=== PATIENT | female | born 2000 | race Hispanic/Latino ===

== ENCOUNTER → 2024-12-22 14:33 | Outpatient (CLI) | payer OTHER, SELFPAY ==
[2024-12-22 15:01] LABS: Appearance Urine UA CLEAR; Bilirubin Urine UA NEGATIVE (NEGATIVE); Color Urine UA YELLOW; Glucose Urine UA NEGATIVE (Negative); Ketones Urine UA 3+ (NEGATIVE); Leukocyte Esterase Urine UA TRACE (NEGATIVE); Nitrite Urine UA NEGATIVE (Negative); Occult Blood Urine UA NEGATIVE (Negative); Protein Urine UA TRACE (Negative); Specific Gravity Urine UA 1.015 (1.000-1.035); Urobilinogen Urine UA 0.2 E.U./dL (0.2); pH Urine UA 6.5 (4.5-8.0)
[2024-12-22 15:09] LABS: Bacteria Urine Many (>30); Mucus Urine 2+ (Negative); RBC Urine 0-1/HPF (0-5/HPF); Squamous Epithelial Cell Urine 5-10 /HPF (0-5/HPF); Urine Volume 10mL (spun); WBC Urine 1-5/HPF (0-5/HPF)
[2024-12-22 15:28] LABS: Add Manual Diff / Slide Review NO; Basophils Absolute Auto 0 /uL (0-100); Basophils Percent Auto 0.3 % (0-2); Eosinophils Absolute Auto 0 /uL (0-450); Eosinophils Percent Auto 0.2 % (2-4); Hemoglobin 13.1 g/dL (12.0-16.0); Lymphocytes Absolute Auto 2300 /uL (1100-4500); Lymphocytes Percent Auto 23.2 % (25-40); Mean Corpuscular HGB Conc 32.8 % (30-36); Mean Corpuscular Hemoglobin 25.3 PG (26-34); Mean Corpuscular Volume 77.3 fL (80-100); Monocytes Absolute Auto 700 /uL (0-900); Monocytes Percent Auto 7.2 % (3-14); Neutrophils Absolute Auto 7000 /uL (1500-7000); Neutrophils Percent Auto 69.1 % (50-75); Platelet Count 265 X10^3/uL (150-400); Red Blood Cell Count 5.17 X10^6/uL (4.0-5.2); Red Cell Distribution Width 14.4 % (11.6-14.8); White Blood Cell Count 10.1 X10^3/uL (4.5-11.0)
[2024-12-22 17:11] LABS: Hepatitis B Surface Antigen NEGATIVE s/c (NEGATIVE); Rubella Antibody IgG 9.7 IU/mL (>15)
[2024-12-22 17:26] LABS: HIV 1 & 2 Ab/Ag 4th Gen Combo NEGATIVE (NEGATIVE); Hep C Virus Ab w/Reflex Quant NEGATIVE s/c (NEGATIVE)
[2024-12-24 02:36] LABS: RPR Screen Non Reactive (Non Reactive)
[2024-12-24 04:09] LABS: Varicella IgG Antibody Non Reactive (Non Reactive)
== END ==
PROVIDERS: Referring Provider Family Medicine; Visit Provider Family Medicine
DX: Z34.80 Encounter for supervision of other normal pregnancy, unspecified trimester (principal)
CPT/HCPCS: 36415; 80055; 81003; 81015; 86787; 86803; 86850; 86900; 86901; 87086; 87389

== ENCOUNTER → 2024-12-30 12:54 | Outpatient (CLI) | payer OTHER, SELFPAY ==
[2024-12-30 14:03] LABS: Natera Collection Specimen Collected
== END ==
PROVIDERS: Referring Provider Family Medicine; Visit Provider Family Medicine
DX: Z34.81 Encounter for supervision of other normal pregnancy, first trimester (principal)
CPT/HCPCS: 36415

== ENCOUNTER → 2025-03-06 13:36 | Outpatient (CLI) | payer OTHER, SELFPAY ==
--- NOTE | 2025-03-06 13:38 | DI.US.S_ITS ---
PROCEDURE: US OB >= 14 WEEKS FETUS INDICATIONS: anatomy OUTSIDE/PRIOR DATING DATA: Last menstrual period (LMP): 10/05/2024. LMP-based estimated date of delivery (NITIN): 07/12/2025. First dating scan (date and location): 12/01/2024. Estimated date of delivery (NITIN) from first dating scan: 07/12/2025. The calculations are made using the ultrasound and working NITIN of 07/12/2025. TECHNIQUE: Real-time scanning was performed of the fetus, with image documentation and biometric measurements. Endovaginal scanning: Not performed COMPARISON: None. FINDINGS: General: A single living intrauterine gestation is present. Presentation: Breech. Placenta: Placental position is anterior , without previa. Amniotic fluid index: 13.0 cm, normal range is 5-24 cm. Single deepest vertical pocket is 4.3 cm. heart rate: 144 beats per minute. Maternal cervical canal: 4.5 cm long. Normal lower limit is 2.5 cm. biometrics: Biparietal diameter: 5.2 cm, 21 weeks 6 days Head circumference: 20.0 cm, 22 weeks 1 day Abdominal circumference: 18.1 cm, 23 weeks 0 days Femur length: 3.9 cm, 22 weeks 3 days Clinically estimated gestational age: 21 weeks 5 days Composite gestational age from present scan: 22 weeks 3 days Estimated weight and percentile: 520 g, 87th percentile Anatomic survey: Neuro: Ventricles are non-dilated at less than 10 mm. Cisterna magna is normal at 3-11 mm. Cerebellum is normal in size and morphology. Nuchal skin fold: Normal at less than 6 mm between 14-21 weeks gestational age. Face: Nose and lips, facial profile are normal. Spine: Not well seen secondary to lie. Heart: 4-chambered heart is present, with normal ventricular outflow tracts. Diaphragm: Diaphragm is intact. Stomach: Left-sided stomach is present. Kidneys: No hydronephrosis. Normal is less than 5 mm in 2nd trimester, less than 7 mm in 3rd trimester. Cord: 3-vessel cord has orthotopic insertion. Bladder: Normal in size. Extremities: All 4 extremities identified. IMPRESSION: 1. Living 2nd trimester intrauterine with no sonographic evidence of complications. Current ultrasound age is 5 days greater than clinical age. 2. spine not well evaluated secondary to position. Otherwise unremarkable 2nd trimester anatomy study. Comment: Recommend return for limited imaging to re-attempt evaluation of the spine. This would complete a 2nd trimester anatomy study. We strive to produce accurate, complete, and clear reports of imaging services. To assist us in improving patient care, this report was composed using standard report templates and voice recognition software. Therefore, it may contain abnormal punctuation, insertions and/or omissions. Occasional wrong-word or sound-alike substitutions may occur. Though we review the report and make efforts to correct it, we do recommend that the report be read carefully in proper context to recognize any text inaccuracies. Dictated by: Heath Boucher M.D. on 03/06/2025 at 22:56 Approved by: Heath Boucher M.D. on 03/06/2025 at 22:58
== END ==
PROVIDERS: Family Provider Family Medicine; Referring Provider Family Medicine; Visit Provider Family Medicine
DX: Z34.82 Encounter for supervision of other normal pregnancy, second trimester (principal); Z3A.22 22 weeks gestation of pregnancy
CPT/HCPCS: 76811

== ENCOUNTER → 2025-03-23 14:37 | Outpatient (CLI) | payer OTHER, SELFPAY ==
--- NOTE | 2025-03-23 14:38 | DI.US.S_ITS ---
PROCEDURE: US OB FOLLOW UP INDICATIONS: f/u anatomy OUTSIDE/PRIOR DATING DATA: Last menstrual period (LMP): Unnoticed. LMP-based estimated date of delivery (NITIN): 07/06/2025. First dating scan (date and location): 12/01/2024. Estimated date of delivery (NITIN) from first dating scan: 07/12/2025. The calculations are made using the ultrasound NITIN of 07/12/2025. TECHNIQUE: Real-time scanning was performed of the fetus, with image documentation and biometric measurements. COMPARISON: [facility], US, US OB >= 14 WEEKS FETUS, 03/06/2025, 13:49. FINDINGS: General: A single living intrauterine gestation is present. Presentation: Breech. Placenta: Placental position is anterior , without previa. Amniotic fluid index: 11 point cm, normal range is 5-24 cm. Single deepest vertical pocket is 4.1 cm. heart rate: 158 beats per minute. Maternal cervical canal: 3.6 cm long. Normal lower limit is 2.5 cm. biometrics: Clinically estimated gestational age: 24 weeks 1 day Other: Spine remains not well seen. IMPRESSION: Single live intrauterine with gestational age of 24 weeks 1 day. Spine remains not well seen. Interval follow-up is recommended. We strive to produce accurate, complete, and clear reports of imaging services. To assist us in improving patient care, this report was composed using standard report templates and voice recognition software. Therefore, it may contain abnormal punctuation, insertions and/or omissions. Occasional wrong-word or sound-alike substitutions may occur. Though we review the report and make efforts to correct it, we do recommend that the report be read carefully in proper context to recognize any text inaccuracies. Dictated by: Kristel Smith M.D. on 03/24/2025 at 13:16 Approved by: Kristel Smith M.D. on 03/24/2025 at 13:18
== END ==
PROVIDERS: Family Provider Family Medicine; Referring Provider Family Medicine; Visit Provider Family Medicine
DX: Z34.82 Encounter for supervision of other normal pregnancy, second trimester (principal); Z3A.24 24 weeks gestation of pregnancy
CPT/HCPCS: 76816

== ENCOUNTER → 2025-04-17 12:31 | Outpatient (CLI) | payer OTHER, SELFPAY ==
--- NOTE | 2025-04-17 12:33 | DI.US.S_ITS ---
PROCEDURE: US OB FOLLOW UP INDICATIONS: f/u anatomy OUTSIDE/PRIOR DATING DATA: Last menstrual period (LMP): Unknown. LMP-based estimated date of delivery (NITIN): 07/06/25. First dating scan (date and location): 12/01/24. Estimated date of delivery (NITIN) from first dating scan: 07/12/25. The calculations are made using the sonographic NITIN of 07/12/25. TECHNIQUE: Real-time scanning was performed of the fetus, with image documentation. Endovaginal scanning: No COMPARISON: [facility], , OB FOLLOW UP, 03/23/2025, 15:15. FINDINGS: A single living intrauterine gestation is present. Presentation: Cephalic. Placenta: Placental position is anterior, without previa. Amniotic fluid index: 17.3 cm, normal range is 5-24 cm. Single deepest vertical pocket is 4.8 cm. heart rate: 133 beats per minute. Maternal cervical canal: Closed and 3.0 cm long. Normal lower limit is 2.5 cm. Biparietal diameter 6.9 cm, 27 weeks five days Head circumference 26.3 cm, 28 weeks four days Abdominal circumference 23.9 cm, 28 weeks one day Femur length 5.5 cm, 28 weeks six days Composite gestational age: 28 weeks two days Expected gestational age: 27 weeks five days. Estimated weight 1224 g, 66th percentile spine and skin covering spine was normal on today's exam. IMPRESSION: Single live intrauterine with estimated weight at the 66th percentile. Composite gestational age in good agreement with the working gestational age. Closed cervix and normal amniotic fluid. Completion of anatomic survey visualization of a normal spine. Dictated by: Celia Landa M.D. on 04/17/2025 at 18:50 Approved by: Celia Landa M.D. on 04/17/2025 at 18:55
== END ==
LOC: US 12:32
PROVIDERS: Family Provider Family Medicine; Referring Provider Family Medicine; Visit Provider Family Medicine
DX: Z34.83 Encounter for supervision of other normal pregnancy, third trimester (principal); Z3A.28 28 weeks gestation of pregnancy
CPT/HCPCS: 76816

== ENCOUNTER 2025-04-21 17:57 | Emergency (ER) | payer OTHER, SELFPAY ==
[2025-04-21 18:02] VITALS: BP 122/71; PULSE 110; RESP 16; TEMP 36.9; O2SAT 98; BMI 28.9
--- NOTE | 2025-04-21 18:41 | ED.GENADULT ---
HPI - General Adult General Chief complaint: Eye Problems Stated complaint: lost hector rt eye, 28weeks Time Seen by Provider: 04/21/25 18:19 Source: patient Mode of arrival: Ambulatory History of Present Illness HPI narrative: 24-year-old woman who currently is 28 weeks comes in with acute visual changes. She states she has a history of migraine with visual aura as well as ocular migraine. Today she describes reading and then developed blurry vision in her right eye only. Certainly after that she describes in irritation flashing visual are very consistent with ocular migraine. Symptoms lasted approximately 20 minutes, no other complaints, no headache she notes that she has been a bit more stressed lately she is feeling the baby moving an active. No recent fevers, cough, chills, chest pain, palpitations no recent trauma Related Data Home Medications ?Medication ?Instructions ?Recorded ?Confirmed [id number]-LB 400 mcg-om3 35 mg-dha 25 tab PO 11/27/24 03/23/25 mg-epa 5 mg-fish oil chewable tablet ferrous sulfate 325 mg (65 mg 325 mg PO DAILY 11/27/24 03/23/25 iron) tablet (Feosol) Previous Rx's ?Medication ?Instructions ?Recorded ondansetron 4 mg disintegrating 4 mg PO Q6H PRN nausea and 12/01/24 tablet vomiting #30 tabs Allergies Allergy/AdvReac Type Severity Reaction Status Date / Time mushroom Allergy Intermediate Hives Verified 04/21/25 18:07 Penicillins Allergy Mild Rash Verified 04/21/25 18:07 Review of Systems Review of Systems Narrative: Pertinent positive and negative findings as per HPI Patient History Surgical History History of dilation and curettage History of tonsillectomy History of tooth extraction H/O tympanostomy Family History Mother H/O thyroidectomy Father Gastric ulcer GERD (gastroesophageal reflux disease) Grandmother Diabetes mellitus Kidney disease Hypertension Grandfather Pancreatic cancer Brother Hyperbilirubinemia Social History marital status: number of children: 1 household members: spouse and children lives independently: Yes caregiver/support person: Yes housing: house pets and animals: Yes (dogs) education level: college (almost finished w/ bachelor's) occupational status: student current occupational exposures/hazards: No special frances needs: No travel history: recent (domestic only) seatbelt use: always water heater temp set < 120 deg: Yes working smoke detector in home: Yes fire extinguisher in home: No carbon monox detector in home: Yes firearms in home: Yes firearms unloaded and locked: Yes do you feel safe at home: Yes Smoking Status: Never smoker second hand exposure: No alcohol intake: former (rarely when not ) substance use type: does not use during the past year weight has: other (back to non- weight) well-balanced diet: daily or most days daily servings fruits/ve-4 caffeine: No Type(s) of exercise: resistance training, running and yoga (pilates) Smoking Status: Never smoker Exam Initial Vital Signs Initial Vital Signs: Vital Signs Temperature 98.4 F 04/21/25 18:02 Pulse Rate 110 H 04/21/25 18:02 Respiratory Rate 16 04/21/25 18:02 Blood Pressure 122/71 04/21/25 18:02 Pulse Oximetry 98 04/21/25 18:02 Oxygen Delivery Method Room Air 04/21/25 18:02 General: Alert appropriate in no acute distress HEENT: Pupils are equal round and reactive. Visual acuity is at her baseline corrected bilateral is 20/25, right is 20/30, left is 20/40 Respiratory: Able to speak in full sentences, no obvious respiratory distress Skin: No obvious rashes, warm and dry Neurologic: Grossly intact no obvious asymmetries or abnormalities Psych: appropriate insight and affect, cooperative Course Vital Signs Vital signs: Vital Signs - 8 hr 04/21/25 18:02 Temperature 98.4 F Pulse Rate 110 H Respiratory Rate 16 Blood Pressure 122/71 Pulse Oximetry 98 Oxygen Delivery Method Room Air Medical Decision Making MDM Narrative Medical decision making narrative: 24-year-old woman with classic description and experience of ocular migraine now with symptoms completely resolved, no subsequent headache, vision appropriate. She notes that she did have a full dilated eye exam about a month ago and was given a clean bill of health. Regarding her , incidental finding at this point with active fetus and no concerns. No concerns for elevated blood pressures, intracranial pressure, meningitis, stroke, retinal artery detachment or retinal artery occlusion. Findings are all reviewed with the patient encouraged her to follow up with the primary care physician she is safe for discharge Discharge Plan Departure Patient Disposition: Home Clinical Impression: Ocular migraine, 28 weeks gestation of Instructions: DI for Migraine Activity Restrictions/Additional Instructions: Thank you for coming in today. Acute visual changes in can be very concerning. Fortunately, at this time you are vision is entirely back to normal and your description is entirely consistent with an ocular migraine. There was no sign of elevated blood pressures, stroke or other vascular abnormalities There is nothing that you need to do with ocular migraines. As you noted they typically resolve within 20 minutes and typically are not associated with headache. Please do keep all of your follow up appointments with your primary care/OBGYN provider. If you find that you are getting worse or develop any new symptoms, please feel free to return to the emergency department for further evaluation. Prescriptions: No Action ondansetron 4 mg tablet,disintegrating 4 mg PO Q6H PRN (Reason: nausea and vomiting) Qty: 30 3RF [id number] oil 400 mcg-35 mg -25 mg-5 mg tablet,chewable PO ferrous sulfate [Feosol] 325 mg (65 mg iron) tablet 325 mg PO DAILY Referrals: ProviderRiya [Primary Care Provider, Family Practice] Stand Alone Forms: Patient Portal/API
[2025-04-21 19:15] VITALS: BP 119/59; PULSE 102; TEMP 36.8; O2SAT 100
== END 2025-04-21 18:50 | disposition home or self-care (01) ==
PROVIDERS: Emergency Provider Emergency Medicine; Family Provider Family Medicine
DX: O26.893 Other specified pregnancy related conditions, third trimester (principal); G43.109 Migraine with aura, not intractable, without status migrainosus; H53.8 Other visual disturbances; Z3A.28 28 weeks gestation of pregnancy
CPT/HCPCS: 99282

== ENCOUNTER → 2025-05-07 08:05 | Outpatient (CLI) | payer OTHER, SELFPAY ==
[2025-05-07 10:06] LABS: Add Manual Diff / Slide Review NO; Hematocrit 32.3 % (36-46); Hemoglobin 10.3 g/dL (12.0-16.0); Lymphocytes Absolute Auto 1600 /uL (1100-4500); Mean Corpuscular HGB Conc 31.9 % (30-36); Mean Corpuscular Hemoglobin 24.7 PG (26-34); Mean Corpuscular Volume 77.6 fL (80-100); Platelet Count 231 X10^3/uL (150-400)
[2025-05-07 10:35] LABS: GTT (PREG) 1 Hour PP 50gm Dose 147 mg/dL (76-139)
== END ==
PROVIDERS: Family Provider Family Medicine; Referring Provider Family Medicine; Visit Provider Family Medicine
DX: Z34.80 Encounter for supervision of other normal pregnancy, unspecified trimester (principal)
CPT/HCPCS: 36415; 82950; 85025; 86850

== ENCOUNTER → 2025-06-10 09:53 | Outpatient (CLI) | payer OTHER, SELFPAY ==
[2025-06-10 10:58] LABS: Glucose Fasting Gestational 71 mg/dL (76-95)
[2025-06-10 12:26] LABS: Glucose 1 Hour Gest 155 mg/dL (76-180)
[2025-06-10 13:24] LABS: Glucose 2 Hour Gest 157 mg/dL (76-155)
[2025-06-10 13:31] LABS: Glucose Tol Interp,Gestational INTERPRETATION
[2025-06-10 15:04] LABS: Glucose 3 Hour Gest 111 mg/dL (76-140)
== END ==
PROVIDERS: Referring Provider Family Medicine; Visit Provider Family Medicine
DX: O99.810 Abnormal glucose complicating pregnancy (principal)
CPT/HCPCS: 36415; 82951; 82952

== ENCOUNTER → 2025-06-15 10:29 | Outpatient (CLI) | payer OTHER, SELFPAY ==
[2025-06-16 11:37] LABS: Strep Grp B PCR POS for Grp B Strep
== END ==
PROVIDERS: Visit Provider Family Medicine
DX: Z34.80 Encounter for supervision of other normal pregnancy, unspecified trimester (principal)
CPT/HCPCS: 87186; 87653

== ENCOUNTER → 2025-07-10 14:07 | Outpatient (CLI) | payer OTHER, SELFPAY ==
[2025-07-10 14:22] LABS: Add Manual Diff / Slide Review NO; Hematocrit 24.4 % (36-46); Hemoglobin 7.8 g/dL (12.0-16.0); Lymphocytes Absolute Auto 1700 /uL (1100-4500); Mean Corpuscular HGB Conc 32.1 % (30-36); Mean Corpuscular Hemoglobin 23.0 PG (26-34); Mean Corpuscular Volume 71.7 fL (80-100); Platelet Count 178 X10^3/uL (150-400)
[2025-07-10 15:18] LABS: Alanine Aminotransferase 28 IU/L (<35); Albumin 3.7 g/dL (3.5-5.0); Albumin Globulin Ratio 1.2 (1.0-2.8); Alkaline Phosphatase 126 U/L (38-126); Blood Urea Nitrogen 8 mg/dL (7-17); Calcium 9.3 mg/dL (8.4-10.2); Carbon Dioxide 26 mmol/L (22-32); Chloride 103 mmol/L (98-107); Estimated Glomerular Filt Rate > 60 mL/min (>60); Globulin 3.1 g/dL (1.7-4.1); Glucose 85 mg/dL (70-99); HEMOLYSIS < 15 (0-50); Potassium 4.2 mmol/L (3.4-5.1); Sodium 135 mmol/L (137-145); Total Protein 6.8 g/dL (6.3-8.2)
== END ==
PROVIDERS: Referring Provider Family Medicine; Visit Provider Family Medicine
DX: R06.02 Shortness of breath (principal)
CPT/HCPCS: 36415; 80053; 85025

== ENCOUNTER 2025-07-10 17:46 | Emergency (ER) | payer OTHER, SELFPAY ==
[2025-07-10] VITALS (11 sets, daily range): BP systolic 124–140; BP diastolic 64–78; PULSE 112–136; RESP 11–29; TEMP 37.4–37.7; O2SAT 97–100; BMI 26.5
--- NOTE | 2025-07-10 17:55 | EKG_ITS ---
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
--- NOTE | 2025-07-10 17:55 | DI.CT.S_ITS ---
PROCEDURE: CT ANGIO CHEST PE PROTOCOL INDICATIONS: sob /barlow/post pe? TECHNIQUE: After the administration of intravenous contrast, 2 mm thick sections acquired from the pulmonary apices to the posterior costophrenic angles. 3-dimensional maximum intensity projection (MIP) coronal and sagittal reformats were then acquired through the thorax. For radiation dose reduction, the following was used: automated exposure control, adjustment of mA and/or kV according to patient size. COMPARISON: None. FINDINGS: Image quality: Diagnostic. Pulmonary arteries: Pulmonary arteries are normal in size, and demonstrate no intraluminal filling defects to suggest central pulmonary embolism. Lower Neck: No enlarged lymph nodes. Thyroid: No thyroid nodules which require sonographic follow up, per consensus guidelines. Axillae: No enlarged lymph nodes. Chest Wall: Unremarkable. Bones: Unremarkable. Lungs and Pleura: No pneumothorax or pleural effusions. No consolidation or suspicious nodules. Heart: Heart size is normal. No pericardial effusion. Thoracic Vessels: No aortic aneurysm. Mediastinum and Chrissie: No enlarged lymph nodes. Esophagus: No wall thickening. No hiatal hernia. Upper Abdomen: Visualized upper abdomen solid organs and bowel loops appear normal. IMPRESSION: No pulmonary embolus. No acute cardiopulmonary process. Dictated by: David Chen M.D. on 07/10/2025 at 19:26 Approved by: David Chen M.D. on 07/10/2025 at 19:29
--- NOTE | 2025-07-10 18:27 | ED_ITS ---
HPI - SOB/Dyspnea General Chief Complaint: Shortness of Breath/Dyspnea Stated Complaint: SOB [place] sent down needs CT poss clot near lungs Time Seen by Provider: 07/10/25 17:53 Source: patient, RN notes reviewed and old records reviewed Mode of arrival: Ambulatory Limitations: no limitations History of Present Illness HPI Narrative: 24-year-old female vaginal delivery with the epidural. Full term vaginal on Sunday had some hemorrhaging did not require blood transfusion but did receive iron on Sunday. Presents with a complaint of increasing shortness of breath since delivery. Patient notes she has felt very tired. Was noted to have a high heart rate and follow up with Dr. Lord. She states swelling in her legs has not improved. She has been a little bit of chest discomfort with state that is started after she was told she has come into the ER. She has had back discomfort since her epidural but states she is worse with ambulation and being hunched over from . She notes some nausea but no vomiting. No syncope or lightheadedness. She has had some spotting terms of vaginal bleeding she states that has been improving. Patient has not had any discharge or foul odor that seems atypical. Patient states no daily medication she is going to be taking vitamin and iron supplement. Had prior D and C for years ago. Reports allergies to penicillin, vancomycin and mushrooms. No tobacco, alcohol or recreational drugs. Dr. Lord is her provider. She receives primary care through [facility]. Related Data Home Medications ?Medication ?Instructions ?Recorded ?Confirmed [id number] 400 mcg-om3 35 mg-dha 25 tab PO 11/27/2406/06 mg-epa 5 mg-fish oil chewable tablet Previous Rx's ?Medication ?Instructions ?Recorded acetaminophen 325 mg tablet 650 mg (2 x 325 mg) PO Q6H PRN 07/08/25 Pain, Mild (1-3) #30 tabs ferrous sulfate 325 mg (65 mg 325 mg PO DAILY #60 tabs 07/08/25 iron) tablet (Feosol) ibuprofen 600 mg tablet 600 mg PO Q6H #60 tabs 07/08 sennosides 8.6 mg tablet (senna) 17.2 mg (2 x 8.6 mg) PO BEDTIME 07/08/25 PRN Constipation #30 tabs Allergies Allergy/AdvReac Type Severity Reaction Status Date / Time mushroom Allergy Intermediate Hives Verified 07/10/25 18:01 Penicillins Allergy Mild Rash Verified 07/10/25 18:01 vancomycin Allergy Verified 07/10/25 18:01 Review of Systems Review of Systems ROS Unobtainable: All systems reviewed & are unremarkable except as noted in HPI and below Patient History Surgical History History of dilation and curettage History of tonsillectomy History of tooth extraction H/O tympanostomy Family History Mother H/O thyroidectomy Father Gastric ulcer GERD (gastroesophageal reflux disease) Grandmother Diabetes mellitus Kidney disease Hypertension Grandfather Pancreatic cancer Brother Hyperbilirubinemia Social History marital status: number of children: 1 household members: spouse and children lives independently: Yes caregiver/support person: Yes housing: house pets and animals: Yes (dogs) education level: college occupational status: student current occupational exposures/hazards: No special frances needs: No travel history: recent seatbelt use: always water heater temp set < 120 deg: Yes working smoke detector in home: Yes fire extinguisher in home: No carbon monox detector in home: Yes firearms in home: Yes firearms unloaded and locked: Yes do you feel safe at home: Yes Smoking Status: Never smoker second hand exposure: No alcohol intake: former substance use type: does not use during the past year weight has: other well-balanced diet: daily or most days daily servings fruits/ve-4 caffeine: No Type(s) of exercise: resistance training, running and yoga Smoking Status: Never smoker Exam Narrative Exam Narrative: GEN: well nourished, well appearing female, alert and oriented x 3, patient appears to be in mild distress. Pale. HEENT: Atraumatic, pupils are equal round reactive to light, extraocular movements are intact, nares are clear, there is no conjunctival pallor. Throat is clear without any exudates, erythema, tonsillar enlargement or uvular deviation HEART: Regular rate and rhythm without murmur, clicks, rubs. pulses are equal in upper and lower extremities. No edema bilateral lower extremities. LUNGS:Lungs clear to auscultation, no wheezes, rales, crackles, chest moves symmetrically, no tachypnea accessory muscle use. ABD:bowel sounds normal, soft, non-tender, no guarding, rebound, rigidity, no masses noted, no hepatosplenomegaly :No CVA tenderness MSCL: Non-tender, no muscle atrophy, muscles strength 5/5 upper and lower extremities, full range of motion, DTRs 2/4 upper and lower extremities. No clonus bilaterally. NEURO:CN 2-12 intact, sensation normal. Initial Vital Signs Initial Vital Signs: Vital Signs Temperature 99.9 F H 07/10/25 18:01 Pulse Rate 134 H 07/10/25 18:01 Respiratory Rate 18 07/10/25 18: Blood Pressure 140/64 07/10/25 18:01 Pulse Oximetry 100 07/10/25 18:01 Oxygen Delivery Method Room Air 07/10/25 18:01 Course Orders Ordered: ED Orders 07/10/25 20:02 UA Complete [Urinalysis and Microscopic] Stat Urine Culture Stat 07/10/25 21:20 Blood Culture Stat Discontinued Medications Sodium Chloride (Normal Saline 0.9%) 500 mls @ 1,000 mls/hr IV BOLUS ONE Stop: 07/10/25 18:58 Last Infusion: 07/10/25 20:00 Dose: Infused Documented By: Admin: 07/10/25 19:44 Dose: 1,000 mls/hr Documented By: JOSE Sodium Chloride (Normal Saline 0.9%) 500 mls @ 1,000 mls/hr IV BOLUS ONE Stop: 07/10/25 21:06 Last Infusion: 07/10/25 21:20 Dose: Infused Documented By: Admin: 07/10/25 20:42 Dose: 1,000 mls/hr Documented By: JOSE Vital Signs Vital signs: Vital Signs - 8 hr 07/10/25 21:45 Pulse Rate 120 H Respiratory Rate 15 Blood Pressure 133/73 Pulse Oximetry 97 Oxygen Delivery Method Room Air MDM - SOB/Dyspnea Lab Data 07/10/25 18:23 07/10/25 18:23 Labs: Lab Results 07/10/25 07/10/25 07/10/25 Range/Units 18:23 18:23 20:02 WBC 10.6 (4.5-11.0) X10^3/uL RBC 3.32 L (4.0-5.2) X10^6/uL Hgb 7.6 L (12.0-16.0) g/dL Hct 23.7 L (36-46) % MCV 71.4 L (80-100) fL MCH 23.0 L (26-34) PG MCHC 32.3 (30-36) % RDW 17.4 H (11.6-14.8) % Plt Count 173 (150-400) X10^3/uL Neut % (Auto) 77.4 H (50-75) % Lymph % (Auto) 15.8 L (25-40) % [place] % (Auto) 4.9 (3-14) % Eos % (Auto) 1.1 L (2-4) % Baso % (Auto) 0.8 (0-2) % Neut # (Auto) 8200 H (1681-4892) /uL Lymph # (Auto) 1700 (0428-2963) /uL [place] # (Auto) 500 (0-900) /uL Eos # (Auto) 100 (0-450) /uL Baso # (Auto) 100 (0-100) /uL PT 10.7 (9.4-12.5) SECONDS INR 0.9 (0.9-1.3) APTT 20 L (25.1-36.5) SECONDS Sodium 134 L (137-145) mmol/L Potassium 4.3 (3.4-5.1) mmol/L Chloride 104 (98-107) mmol/L Carbon Dioxide 23 (22-32) mmol/L BUN 7 (7-17) mg/dL Creatinine 0.53 (0.52-1.04) mg/dL Estimated GFR > 60 (>60) mL/min BUN/Creatinine Ratio 13.2 (6-22) Glucose 95 (70-99) mg/dL Lactate 1.6 (0.7-2.1) mmol/L Calcium 9.1 (8.4-10.2) mg/dL Total Bilirubin 0.4 (0.2-1.3) mg/dL AST 71 H (14-36) IU/L ALT 33 (<35) IU/L Alkaline Phosphatase 123 (38-126) U/L Total Creatine Kinase 24 L (30-135) U/L Troponin I < 0.012 (0.01-0.034) ng/mL NT-Pro-B Natriuret Pep < 20 (<125) pg/mL Total Protein 7.0 (6.3-8.2) g/dL Albumin 3.7 (3.5-5.0) g/dL Globulin 3.3 (1.7-4.1) g/dL Albumin/Globulin Ratio 1.1 (1.0-2.8) Lipase 53 Cancelled (23-300) U/L Procalcitonin 0.092 (<0.5) ng/mL Urine Color Yellow Urine Appearance Clear Urine pH 8.5 H (4.5-8.0) Ur Specific [place] 1.010 (1.000-1.035) Urine Protein Negative (Negative) Urine Glucose (UA) Negative (Negative) g/dL Urine Ketones Negative (NEGATIVE) Urine Occult Blood 3+ H (Negative) Urine Nitrate Negative (Negative) Urine Bilirubin Negative (NEGATIVE) Urine Urobilinogen 0.2 (0.2) E.U./dL Ur Leukocyte Esterase 1+ H (NEGATIVE) Urine RBC 5-10/hpf H (0-5/HPF) Urine WBC 1-5/hpf (0-5/HPF) Ur Squamous Epith Cells 0-1 /hpf (0-5/HPF) Urine Bacteria Occasional (0-1) (None) Ur Culture Indicated? Specimen cultured Vol Urine Centrifuged 10ml (spun) Blood Type AB Positive Antibody Screen Negative Crossmatch See Detail ECG Data Attestation: I personally reviewed and interpreted this ECG as follows: Interpretation: Sinus tachycardia rate of 137 VT 138 QRS is 70 QTC of 434, no acute ST elevation or depression. No prior for comparison. [facility] Narrative Medical decision making narrative: EKG shows sinus tachycardia, initial blood pressure is in the 140s repeats in 130 still elevated concern for preeclampsia, PE with her recent delivery, sepsis. Labs white count of 10 hemoglobin 7.6 consistent with 7.4 on 07/08/2025, microcytic platelets are 173. INR is 0.9 PTT is 20. Sodium is 134 BUN electrolytes are otherwise appropriate, AST is 71 ALT alk-phos and bilirubin are appropriate as well lipase is 53, troponin is less than 0.012, BNP is less than 20. Procalcitonin is 0.092. Lactate 1.6 UA shows 3+ blood pH 8.5 negative for protein, 1+ leuks 5-10 RBCs 1-5 WBCs 1 squamous 1 bacteria was sent for culture CT angio shows no pulmonary embolism, no acute cardiopulmonary process. Patient received 1000 mL bolus Spoke with Dr. Graham 1939, reviewed findings thus far CT still pending, patient's blood pressure is noted to be elevated 140s and 130 on rechecked in the 1st 1/2 hour patient's arrival he is tachycardic. She notes if patient has persistent elevated temperatures with a AST elevated may need to be kept for preeclampsia but would like to follow up with repeat blood pressures after CT angio was back. Do not have to start medication yet but if persistently elevated would start Mag. On rechecked with the patient she notes she has developed a little bit of mild headache, no vision changes. She has noticed some tingling and feels like some swelling in her hands but not her legs. Re-contact Dr. Olvera, @ 2019 feels comfortable patient discharging home would ask if she does not have a blood pressure cuff to get 1 from center and she can wear blue band for blue band initiative although with single elevated blood pressure in the 140s she feels comfortable with her discharging home we discussed her persistent tachycardia discussed she could do a unit of packed red blood cells and discharge home with a short term follow up on Sunday. Spoke with the patient she elects not to continue with transfusion we will get her blue band as well as blood pressure cuff for home, discussed return precautions all questions answered. Did discuss she is still slightly tachycardic I think she would benefit from it but after discussion she politely refuses. Did discuss she can return at any time for re-evaluation or transfusion. Patient is going to continue to monitor her blood pressures discussed parameters to follow up I can reach out to leather scrubber or come back to the emergency department if she is having elevated pressures regularly in the 140s or 130s. Also discussed signs and symptoms to watch for as well. Discharge Plan Departure Patient Disposition: Home Clinical Impression: Tachycardia, Anemia Instructions: DI for Pre-eclampsia Activity Restrictions/Additional Instructions: Follow up with your OB provider on Sunday. You have continued to be little bit tachycardic this maybe secondary anemia as you have elected not to pursue the blood transfusion today if you noticed you are having worsening symptoms with tachycardia please return to the emergency department. Continue to monitor your blood pressure regularly you did have an elevated blood pressure, I spoke with the on-call physician he would like for you to monitor your blood pressure throughout the weekend if you are getting numbers consistently in the 140s or 130s reach out to your OB providers. You should have received a blood pressure cuff from from us before discharge as well as a blue band. Return for headaches, sudden vision changes, increasing swelling, hyper reflexia were twitchy legs, increased or new chest pain or shortness of breath, any syncope or passing out, fevers, new abdominal back or flank pain or other new or concerning changes. Prescriptions: No Action [id number] 400 mcg-35 mg -25 mg-5 mg tablet,chewable PO sennosides [senna] 8.6 mg Tablet 17.2 mg PO BEDTIME PRN (Reason: Constipation) Qty: 30 0RF acetaminophen 325 mg Tablet 650 mg PO Q6H PRN (Reason: Pain, Mild (1-3)) Qty: 30 0RF ibuprofen 600 mg Tablet 600 mg PO Q6H Qty: 60 0RF ferrous sulfate [Feosol] 325 mg (65 mg iron) tablet 325 mg PO DAILY Qty: 60 0RF Referrals: Provider,Riya MCKEON [Primary Care Provider, Family Practice] Melinda Antonio MD [Physician, Family Practice] Stand Alone Forms: Patient Portal/API
[2025-07-10 18:32] LABS: Add Manual Diff / Slide Review NO; Hematocrit 23.7 % (36-46); Hemoglobin 7.6 g/dL (12.0-16.0); Lymphocytes Absolute Auto 1700 /uL (1100-4500); Mean Corpuscular HGB Conc 32.3 % (30-36); Mean Corpuscular Hemoglobin 23.0 PG (26-34); Mean Corpuscular Volume 71.4 fL (80-100); Platelet Count 173 X10^3/uL (150-400)
[2025-07-10 18:42] LABS: INR 0.9 (0.9-1.3); Prothrombin Time 10.7 SECONDS (9.4-12.5)
[2025-07-10 18:45] LABS: PTT Partial Thromboplastin Tim 20 SECONDS (25.1-36.5)
[2025-07-10 18:48] LABS: Alanine Aminotransferase 33 IU/L (<35); Albumin 3.7 g/dL (3.5-5.0); Albumin Globulin Ratio 1.1 (1.0-2.8); Alkaline Phosphatase 123 U/L (38-126); Blood Urea Nitrogen 7 mg/dL (7-17); Calcium 9.1 mg/dL (8.4-10.2); Carbon Dioxide 23 mmol/L (22-32); Chloride 104 mmol/L (98-107); Creatine Kinase 24 U/L (30-135); Estimated Glomerular Filt Rate > 60 mL/min (>60); Globulin 3.3 g/dL (1.7-4.1); Glucose 95 mg/dL (70-99); Lipase 53 U/L (23-300); Sodium 134 mmol/L (137-145); Total Protein 7.0 g/dL (6.3-8.2)
[2025-07-10 18:49] LABS: Lactate (Lactic Acid) 1.6 mmol/L (0.7-2.1)
[2025-07-10 18:50] LABS: HEMOLYSIS 65 (0-50); Potassium 4.3 mmol/L (3.4-5.1)
[2025-07-10 18:59] LABS: NT-proBNP (BNP-Adult 18+) < 20 pg/mL (<125)
[2025-07-10 19:00] LABS: Troponin I < 0.012 ng/mL (0.01-0.034)
[2025-07-10 19:06] LABS: Procalcitonin 0.092 ng/mL (<0.5)
[2025-07-10] MEDS: SODIUM CHLORIDE 0.9% 500 ML 1000 ML IV ×2 (19:44→20:42)
[2025-07-10 20:10] LABS: Appearance Urine UA CLEAR; Bilirubin Urine UA NEGATIVE (NEGATIVE); Color Urine UA YELLOW; Glucose Urine UA NEGATIVE (Negative); Ketones Urine UA NEGATIVE (NEGATIVE); Leukocyte Esterase Urine UA 1+ (NEGATIVE); Nitrite Urine UA NEGATIVE (Negative); Occult Blood Urine UA 3+ (Negative); Protein Urine UA NEGATIVE (Negative); Specific Gravity Urine UA 1.010 (1.000-1.035); Urobilinogen Urine UA 0.2 E.U./dL (0.2)
[2025-07-10 20:12] LABS: pH Urine UA 8.5 (4.5-8.0)
[2025-07-10 20:16] LABS: Culture Indicated Urine Specimen Cultured
--- NOTE | 2025-07-10 20:44 | PC.NURSE ---
center RN now at bedside for blue band, home BP monitor, and pt teaching on preeclampsia. Pt verbalizing understanding.
== END 2025-07-10 21:46 | disposition home or self-care (01) ==
PROVIDERS: Family Medicine; Emergency Provider Emergency Medicine
DX: O16.5 Unspecified maternal hypertension, complicating the puerperium (principal); R00.0 Tachycardia, unspecified; D64.9 Anemia, unspecified; R07.9 Chest pain, unspecified; R06.02 Shortness of breath
CPT/HCPCS: 36415; 71275; 80053; 81001; 82550; 83605; 83690; 83880; 84145; 84484; 85025; 85610; 85730; 86850; 86900; 86901; 87040; 87077; 87086; 87186; 93005; 96360; 99284; Q9967

== ENCOUNTER → 2025-07-15 11:45 | Outpatient (CLI) | payer OTHER, SELFPAY ==
[2025-07-15 12:24] LABS: Add Manual Diff / Slide Review NO; Hematocrit 27.2 % (36-46); Hemoglobin 8.4 g/dL (12.0-16.0); Lymphocytes Absolute Auto 3400 /uL (1100-4500); Mean Corpuscular HGB Conc 30.8 % (30-36); Mean Corpuscular Hemoglobin 22.7 PG (26-34); Mean Corpuscular Volume 73.6 fL (80-100); Platelet Count 286 X10^3/uL (150-400)
[2025-07-15 13:17] LABS: Alanine Aminotransferase 26 IU/L (<35); Albumin 4.0 g/dL (3.5-5.0); Albumin Globulin Ratio 1.2 (1.0-2.8); Alkaline Phosphatase 117 U/L (38-126); Blood Urea Nitrogen 6 mg/dL (7-17); Calcium 9.5 mg/dL (8.4-10.2); Carbon Dioxide 22 mmol/L (22-32); Chloride 107 mmol/L (98-107); Estimated Glomerular Filt Rate > 60 mL/min (>60); Globulin 3.4 g/dL (1.7-4.1); Glucose 89 mg/dL (70-99); HEMOLYSIS < 15 (0-50); Potassium 4.3 mmol/L (3.4-5.1); Sodium 140 mmol/L (137-145); Total Protein 7.4 g/dL (6.3-8.2)
== END ==
PROVIDERS: Referring Provider Family Medicine; Visit Provider Family Medicine
DX: R74.8 Abnormal levels of other serum enzymes (principal); D64.9 Anemia, unspecified
CPT/HCPCS: 36415; 80053; 85025